=== PATIENT | female | born 1995 | race American Indian/Alaskan Native ===

== ENCOUNTER 2017-11-08 10:11 | Emergency (ER) | payer MEDICAID ==
[2017-11-08 10:44] VITALS: BP 121/73
--- NOTE | 2017-11-08 13:18 | Emergency Department Report ---
HPI - General Chief Complaint: Upper Respiratory Infection Time Seen by Provider: 11/08/17 13:18 - HPI HPI: Patient here complaining of cold symptoms since Monday. Positive nasal congestion and positive headache. Positive chest positive. Denies any abdominal pain. Body aches and sore throat. Denies any nausea vomiting or diarrhea. Denies any back pain. Denies any medical problems. Patient able tolerate oral liquids. She took [facility] Past Medical Hx - Past Medical History Previous Medical History?: No - Surgical History Past Surgical History?: No - Family History Family history: no significant - Social History Smoking Status: Never Smoker Substance Use Type: Alcohol - Medications Home Medications: Home Medications Medication Instructions Recorded Confirmed Last Taken Type Cetirizine HCl [ZyrTEC] 10 mg PO QDAY #10 capsule 11/08/17 Unknown Rx Ibuprofen [Motrin] 600 mg PO Q8H PRN #12 tablet 11/08/17 Unknown Rx Ondansetron [Zofran Odt] 4 mg PO Q6H PRN #12 tab.rapdis 11/08/17 Unknown Rx guaiFENesin/CODEINE [Robitussin AC] 5 ml PO Q12H PRN #50 oral.liqd 11/08/17 Unknown Rx ED Review of Systems ROS: Stated complaint: BODY ACHES Other details as noted in HPI Comment: All other systems reviewed and negative Constitutional: chills, fever Eyes: denies: eye discharge ENT: ear pain, throat pain, congestion. denies: dental pain Respiratory: cough. denies: shortness of breath, SOB with exertion, SOB at rest , stridor, wheezing Cardiovascular: denies: chest pain, palpitations, dyspnea on exertion, edema, syncope, paroxysmal nocturnal dyspnea Gastrointestinal: denies: abdominal pain, nausea, vomiting, diarrhea, constipation Genitourinary: denies: dysuria, frequency, hematuria Musculoskeletal: myalgia. denies: back pain, joint swelling, arthralgia Skin: denies: rash Neurological: denies: headache Physical Exam - Physical Exam Vital Signs: Vital Signs 11/08/17 10:41 Temperature 99.1 F Pulse Rate 106 H Respiratory 18 Rate Blood Pressure 121/73 O2 Sat by Pulse 100 Oximetry Vital Signs 11/08/17 11/08/17 10:41 14:32 Temperature 99.1 F Pulse Rate 106 H 92 H Respiratory 18 Rate Blood Pressure 121/73 O2 Sat by Pulse 100 Oximetry General: This is a 22-year-old female well-nourished well-developed in no acute distress. Physical Exam: Head: Normocephalic atraumatic Ears:BIateral TM congested without erythema and loss of bony landmarks. Wilman EAC with normal exam. No mastoid bone tenderness. Mouth: Moist, no pharyngeal erythema or exudate . No tonsillar erythema or exudate. UVULA midline and oral airways patent. No peritonsillar abscess Neck: Nontender to palpate, supple, normal range of motion. No adenopathy. No c- spine tenderness. Nose: Bilateral nasal mucosa congested with clear drainage. Maxillary and frontal sinuses non-tender to palpate. Eyes: Bilateral Sclerae and conjunctiva without injection. Bilateral pupils equal and reactive to light. Bilateral lids are normal. Normal accommodation.BEOMI Abdomen: Soft, nontender to palpation in all quadrants, no guarding or rebound tenderness. Normal bowel sounds Extremity: No clubbing, cyanosis or edema. +2 pulses in all extremities and no neurovascular compromise Lungs: Clear to auscultate bilaterally, no rhonchi wheezes or rales. Dry cough , Normal work of breathing and no chest wall tenderness CV: S1, S2. Regular rate and rhythm negative murmur. Capillary refill is less than 3 seconds Skin: Clean dry and intact, no rashes or lesions Psych: Normal mood and behavior ED Course Vital Signs 11/08/17 10:41 Temperature 99.1 F Pulse Rate 106 H Respiratory 18 Rate Blood Pressure 121/73 O2 Sat by Pulse 100 Oximetry Vital Signs 11/08/17 11/08/17 10:41 14:32 Temperature 99.1 F Pulse Rate 106 H 92 H Respiratory 18 Rate Blood Pressure 121/73 O2 Sat by Pulse 100 Oximetry - Reevaluation(s) Reevaluation #1: 11/08/17 14:36 Patient received ibuprofen 800 mg by mouth and Zofran 8 mg ODT and emergency room and tolerated 2 cups of cranberry juice without any nausea or vomiting. ED Medical Decision Making - Lab Data Influenza A positive, influenza B negative Rapid strep negative - Medical Decision Making ED course: She presented emergency room flulike symptoms and was sent to have influenza A. Influenza be negative and rapid strep negative. Patient was given Zofran 8 mg ODT and Motrin 800 mg by mouth. Vital signs are stable with low-grade fever. She was able to tolerate oral challenge emergency room without any difficulties. This is explained to patient that she has influenza A and will need to increase her fluid intake, Motrin for fever and/or pain and take vitamin C. She voiced understanding. I discussed with her to follow-up with her primary care in 2 days and if she does not get better and feel worse tomorrow or to return to ED. She was discharged home with prescription for Motrin, guaifenesin with codeine and Zyrtec, Zofran. Tamiflu omitted the patient does not have any quantities and she is stable and does not look toxic. Critical care attestation.: If time is entered above; I have spent that time in minutes in the direct care of this critically ill patient, excluding procedure time. ED Disposition Clinical Impression: Influenza A, Upper respiratory infection with cough and congestion, Fever chills Disposition: DC-01 TO HOME OR SELFCARE Is pt being admited?: No Does the pt Need Aspirin: No Condition: Stable Instructions: Fever in Adults (ED), Influenza (ED), Upper Respiratory Infection (ED) Additional Instructions: Please increase her fluid intake to 2-3 L of fluid includes water, apple juice, orange juice or cranberry juice daily. This is helped to reduce her fever and prevent dehydration Take Motrin as prescribed for fever and/or pain. Takes Zyrtec for congestion Take Guaifenesin with codeine for cough but please do not drive or operate heavy issue of taking this medication Follow-up with a primary care physician in 2 days and if he is feeling worse return to the emergency room. Prescriptions: Cetirizine HCl [ZyrTEC] 10 mg PO QDAY #10 capsule guaiFENesin/CODEINE [Robitussin AC] 5 ml PO Q12H PRN #50 oral.liqd PRN Reason: Cough Ibuprofen [Motrin] 600 mg PO Q8H PRN #12 tablet PRN Reason: PAIN/FEVER Ondansetron [Zofran Odt] 4 mg PO Q6H PRN #12 tab.rapdis PRN Reason: Nausea And Vomiting Referrals: PRIMARY CARE, [Primary Care Provider] - 11/10/17 [facility] [Outside] - 11/10/17 Forms: Accompanied Note, Work/School Release Form(ED)
[2017-11-08] MEDS ORDERED: MOTRIN PO ONE (13:19)
[2017-11-08] MEDS ORDERED: ZOFRAN ODT PO ONE (13:19)
== END 2017-11-08 14:54 | disposition home or self-care (01) ==
LOC: ED 10:11
DX: J09.X2 Influenza due to identified novel influenza A virus with other respiratory manifestations (principal)
CPT/HCPCS: 87116; 87400; 87430; 99283; Q0162

== ENCOUNTER 2018-05-31 19:46 | Emergency (ER) | payer SELFPAY ==
[2018-05-31 19:59] VITALS: BP 124/69
[2018-05-31 21:14] LABS: Bilirubin,Urine NEG (Negative); Blood,Urine NEG (Negative); Color,Urine Yellow (Yellow); Mucus,Urine FEW /HPF; Protein,Urine <15 mg/dL mg/dL (Negative)
[2018-05-31 21:16] LABS: HCG Qualitative,Urine Negative (Negative)
--- NOTE | 2018-05-31 22:18 | Emergency Department Report ---
ED Female HPI - General Chief complaint: Urogenital-Female Stated complaint: VAGINAL DISCHARGE/BURNING Time Seen by Provider: 05/31/18 21:47 Source: patient Mode of arrival: Ambulatory Limitations: No Limitations - History of Present Illness Initial comments: Patient is a 22-year-old [place] female who presents status STD exposure states of warfarin was advised that his own apartment and was positive for HSV patient denies symptoms no rashes lesions or sores he does endorse dysuria white vaginal discharge no abdominal pain no nausea vomiting last menstrual period 2 weeks ago no exacerbating or relieving factors Complaint: vaginal discharge, dysuria, pelvic pain, possible STD Onset/Timin -: week(s) Radiation: non-radiating Severity: moderate Severity scale (0 -10): 2 Consistency: intermittent Improves with: none Worsens with: none Are you Now?: No Last Menstrual Period: 05/17/18 EDC: 02/21/19 Associated Symptoms: vaginal discharge - Related Data Sexually active: Yes : 1 Para: 1 A: 0 Previous Rx's Medication Instructions Recorded Last Taken Type Cetirizine HCl [ZyrTEC] 10 mg PO QDAY #10 capsule 11/08/17 Unknown Rx Ibuprofen [Motrin] 600 mg PO Q8H PRN #12 tablet 11/08/17 Unknown Rx Ondansetron [Zofran Odt] 4 mg PO Q6H PRN #12 tab.rapdis 11/08/17 Unknown Rx guaiFENesin/CODEINE [Robitussin AC] 5 ml PO Q12H PRN #50 oral.liqd 11/08/17 Unknown Rx Fluconazole [Diflucan TAB] 150 mg PO ONCE #1 tablet 05/31/18 Unknown Rx metroNIDAZOLE [Flagyl] 500 mg PO Q12HR #20 tab 05/31/18 Unknown Rx Allergies Allergy/AdvReac Type Severity Reaction Status Date / Time amoxicillin Allergy Unknown Verified 11/08/17 10:41 ED Review of Systems ROS: Stated complaint: VAGINAL DISCHARGE/BURNING Other details as noted in HPI Constitutional: denies: chills, fever Eyes: denies: eye pain, eye discharge, vision change ENT: denies: ear pain, throat pain Respiratory: denies: cough, shortness of breath, wheezing Cardiovascular: denies: chest pain, palpitations Endocrine: no symptoms reported Gastrointestinal: denies: abdominal pain, nausea, diarrhea Genitourinary: discharge Musculoskeletal: denies: back pain, joint swelling, arthralgia Skin: denies: rash, lesions Neurological: denies: headache, weakness, paresthesias Psychiatric: denies: anxiety, depression Hematological/Lymphatic: denies: easy bleeding, easy bruising ED Past Medical Hx - Past Medical History Previous Medical History?: No - Surgical History Past Surgical History?: No - Social History Smoking Status: Never Smoker Substance Use Type: None - Medications Home Medications: Home Medications Medication Instructions Recorded Confirmed Last Taken Type Cetirizine HCl [ZyrTEC] 10 mg PO QDAY #10 capsule 11/08/17 Unknown Rx Ibuprofen [Motrin] 600 mg PO Q8H PRN #12 tablet 11/08/17 Unknown Rx Ondansetron [Zofran Odt] 4 mg PO Q6H PRN #12 tab.rapdis 11/08/17 Unknown Rx guaiFENesin/CODEINE [Robitussin AC] 5 ml PO Q12H PRN #50 oral.liqd 11/08/17 Unknown Rx Fluconazole [Diflucan TAB] 150 mg PO ONCE #1 tablet 05/31/18 Unknown Rx metroNIDAZOLE [Flagyl] 500 mg PO Q12HR #20 tab 05/31/18 Unknown Rx ED Physical Exam - General Limitations: No Limitations General appearance: alert, in no apparent distress - Head Head exam: Present: atraumatic, normocephalic - Eye Eye exam: Present: normal appearance - ENT ENT exam: Present: mucous membranes moist - Neck Neck exam: Present: normal inspection - Respiratory Respiratory exam: Present: normal lung sounds bilaterally. Absent: respiratory distress - Cardiovascular Cardiovascular Exam: Present: regular rate, normal rhythm. Absent: systolic murmur, diastolic murmur, rubs, gallop - GI/Abdominal GI/Abdominal exam: Present: soft, normal bowel sounds - Rectal Rectal exam: Present: deferred - External exam: Present: normal external exam. Absent: erythema, swelling, lesions, lacerations, ecchymosis, bleeding Speculum exam: Present: erythema, vaginal discharge (white green malodorous), cervical discharge. Absent: vaginal bleeding, foreign body, tissue, laceration Bi-manual exam: Present: cervical motion tendernes - Extremities Exam Extremities exam: Present: normal inspection - Back Exam Back exam: Present: normal inspection - Neurological Exam Neurological exam: Present: alert, oriented X3, CN II-XII intact, normal gait, reflexes normal - Psychiatric Psychiatric exam: Present: normal affect, normal mood - Skin Skin exam: Present: warm, dry, intact, normal color. Absent: rash ED Course Vital Signs 05/31/18 19:54 Temperature 99.8 F H Pulse Rate 93 H Respiratory 16 Rate Blood Pressure 124/69 O2 Sat by Pulse 100 Oximetry ED Medical Decision Making - Lab Data Laboratory Tests 05/31/18 20:43 Urine Color Yellow Urine Turbidity Clear Urine pH 6.0 Ur Specific [place] 1.017 Urine Protein <15 mg/dl Urine Glucose (UA) Neg Urine Ketones Neg Urine Blood Neg Urine Nitrite Neg Urine Bilirubin Neg Urine Urobilinogen 2.0 Ur Leukocyte Esterase Neg Urine WBC (Auto) 1.0 Urine RBC (Auto) 3.0 U Epithel Cells (Auto) 1.0 Urine Mucus Few Urine HCG, Qual Negative - Medical Decision Making Urinary normal hCG negative vaginal exam concerning for a white vaginal discharge white green tinged malodorous moderate erythema C clear cervical discharge GC chlamydia culture sent and wet prep pending plan treat for STI exposure Rocephin and Zithromax ED patient given prescription for Flagyl and Diflucan patient will follow up with [facility] for HIV HSV screening patient verbalizes agreement and understanding sign Critical care attestation.: If time is entered above; I have spent that time in minutes in the direct care of this critically ill patient, excluding procedure time. ED Disposition Clinical Impression: Exposure to STD Disposition: DC-01 TO HOME OR SELFCARE Is pt being admited?: No (past) Does the pt Need Aspirin: No Condition: Good Instructions: Sexually Transmitted Diseases (ED), Vaginitis (ED) Prescriptions: Fluconazole [Diflucan TAB] 150 mg PO ONCE #1 tablet metroNIDAZOLE [Flagyl] 500 mg PO Q12HR #20 tab Referrals: [facility] [Outside] - 3-5 Days Forms: Work/School Release Form(ED) Time of Disposition: 22:29
[2018-05-31] MEDS ORDERED: XYLOCAINE 1% MPF 5 mL INFILTRATI ONE (22:19)
[2018-05-31] MEDS ORDERED: ROCEPHIN IM ONE (22:19)
[2018-05-31] MEDS ORDERED: ZITHROMAX PO ONE (22:19)
[2018-05-31] MEDS ORDERED: XYLOCAINE 1% 20 mL ONE (22:33)
== END 2018-05-31 23:08 | disposition home or self-care (01) ==
LOC: ED 19:46
DX: Z20.2 Contact with and (suspected) exposure to infections with a predominantly sexual mode of transmission (principal); Z88.1 Allergy status to other antibiotic agents
CPT/HCPCS: 81001; 81025; 96372; 99284; J0696